=== PATIENT | male | born 1970 ===

== ENCOUNTER 2021-09-07 17:00 | Outpatient (CLI) | payer OTHER | END 2021-09-07 17:01 | disposition home or self-care (01) | LOC: SLEEPLAB 17:00 | PROVIDERS: ATTEND Family Medicine | DX: G47.33 Obstructive sleep apnea (adult) (pediatric) (principal); F51.9 Sleep disorder not due to a substance or known physiological condition, unspecified; G25.81 Restless legs syndrome; G47.61 Periodic limb movement disorder; R53.83 Other fatigue; R40.0 Somnolence; E66.9 Obesity, unspecified; R06.83 Snoring; G47.00 Insomnia, unspecified; F41.8 Other specified anxiety disorders; Z68.30 Body mass index [BMI] 30.0-30.9, adult | CPT/HCPCS: 95810 ==